=== PATIENT | female | born 1980 | race Caucasian/White ===

== ENCOUNTER 2018-05-07 22:50 | Emergency (ER) | payer BC ==
[2018-05-07 23:55] LABS: ADD MAN DIFF? NO
[2018-05-07 23:57] LABS: BASO # 0.1 x10^3/uL (0.0-0.2); BASO % 1 % (0-3); EOS # 0.3 x10^3/uL (0.0-0.7); EOS % 3 % (0-3); HEMATOCRIT 39.6 % (36.0-47.0); HEMOGLOBIN 13.6 g/dL (12.0-15.5); LYMPH # 4.6 x10^3/uL (1.0-4.8); LYMPH % 46 % (24-48); MEAN CORPUSCULAR HEMOGLOBIN 31 pg (25-35); MEAN CORPUSCULAR HGB CONC 34 g/dL (31-37); MEAN CORPUSCULAR VOLUME 89 fL (79-100); MONO # 0.5 x10^3/uL (0.0-1.1); MONO % 5 % (0-9); NEUT # 4.5 x10^3uL (1.8-7.7); NEUT % 45 % (31-73); PLATELET COUNT 301 x10^3/uL (140-400); RED BLOOD COUNT 4.46 x10^6/uL (3.50-5.40); WHITE BLOOD COUNT 9.9 x10^3/uL (4.0-11.0)
[2018-05-07 23:58] LABS: BILIRUBIN,URINE NEGATIVE (NEG); CLARITY,URINE CLEAR; COLOR,URINE YELLOW; GLUCOSE,URINE >=1000 mg/dL (NEG); NITRITE,URINE POSITIVE (NEG); PH,URINE 5.5; PROTEIN,URINE NEGATIVE (NEG-TRACE); UROBILINOGEN,URINE 0.2 mg/dL (0.2 mg/dL)
[2018-05-08 00:06] LABS: ANION GAP 10 (6-14); BACTERIA,URINE MANY /HPF (0-FEW); BLOOD UREA NITROGEN 7 mg/dL (7-20); CARBON DIOXIDE 25 mmol/L (21-32); CHLORIDE 102 mmol/L (98-107); CREATININE 0.8 mg/dL (0.6-1.0); GFR 80.7; GLUCOSE 267 mg/dL (70-99); POTASSIUM 3.7 mmol/L (3.5-5.1); SODIUM 137 mmol/L (136-145); SQUAMOUS EPITHELIAL CELL,UR MOD /LPF
[2018-05-08 00:15] LABS: TROPONINI < 0.017 ng/mL (0.000-0.055)
[2018-05-08 00:19] LABS: NT-PRO BNP 100 pg/mL (0-124)
[2018-05-08] MEDS: NITROFURANTOIN MONOHYD/M-CRYST 100 MG CAPSULE. PO (01:12)
== END 2018-05-08 01:27 | disposition home or self-care (01) ==
LOC: ER 05-08 01:27
DX: R60.0 Localized edema (principal); N39.0 Urinary tract infection, site not specified; R06.02 Shortness of breath; F41.9 Anxiety disorder, unspecified; F32.9 Major depressive disorder, single episode, unspecified; E11.9 Type 2 diabetes mellitus without complications; I10 Essential (primary) hypertension; Z98.51 Tubal ligation status; Z88.8 Allergy status to other drugs, medicaments and biological substances
CPT/HCPCS: 36415; 71045; 80048; 81001; 83880; 84484; 85025; 87086; 99285-25

== ENCOUNTER → 2019-01-01 | Outpatient (CLI) | payer BC ==
[2018-05-08 01:15] VITALS: BP 154/78
[~2019-01-01] MED LIST: DOCU-109 PO; FLUO40CA9 PO; GABA300C18 PO; GLIM2TAB2 PO; HYDR12.58 PO; LOSA1TAB22 PO; METF10007 PO; NITR100C62 PO; ONDA4TAB7 PO; OXYC1TAB15 PO; PANT40TA3 PO; PRED1TAB3 PO
--- NOTE | 2019-01-01 16:42 | KCIC ---
EXAM: Pelvic sonogram. HISTORY: Menorrhagia. TECHNIQUE: Transabdominal and transvaginal sonographic imaging of the pelvis was performed. COMPARISON: None. FINDINGS: The uterus measures 10.4 x 5.5 x 8.0 cm. There is a suspected subseptate uterus. The endometrial stripe measures 16 mm on the left aspect of the endometrial cavity and 11 mm on the right aspect of endometrial cavity. There are multiple complex nabothian cysts with septations within the cervix, largest which measures 1.1 cm. The left ovary is surgically absent. There is a 2.8 cm simple appearing cyst within the right ovary. The combination of the right ovarian cyst and surrounding ovarian parenchyma measures 5.3 x 3.6 x 4.6 cm. There is normal right ovarian blood flow. There is no pelvic free fluid. IMPRESSION: 1. Suspected subseptate uterus with prominent endometrial stripe within the left aspect of the endometrial cavity measuring 16 mm in thickness. This can be within normal limits for a premenopausal female. No endometrial cavity mass is seen. 2. 2.8 cm right ovarian cyst. 3. Surgically absent left ovary. 4. Multiple complicated nabothian cysts within the cervix. Electronically signed by: Stella Morelos MD (01/01/2019 4:39 PM) [facility]
== END | disposition home or self-care (01) ==
LOC: KCIC US 15:02
PROVIDERS: ATTEND Obstetrics & Gynecology
DX: N83.201 Unspecified ovarian cyst, right side (principal); N88.8 Other specified noninflammatory disorders of cervix uteri
CPT/HCPCS: 76830; 76856

== ENCOUNTER → 2019-01-07 | Outpatient (CLI) | payer BC ==
[2018-05-08 01:15] VITALS: BP 154/78
[2019-01-07 15:33] LABS: BASO % 1 % (0-3); EOS # 0.3 x10^3/uL (0.0-0.7); EOS % 3 % (0-3); HEMATOCRIT 39.5 % (36.0-47.0); HEMOGLOBIN 13.7 g/dL (12.0-15.5); LYMPH # 4.3 x10^3/uL (1.0-4.8); LYMPH % 43 % (24-48); MEAN CORPUSCULAR HEMOGLOBIN 30 pg (25-35); MEAN CORPUSCULAR HGB CONC 35 g/dL (31-37); MEAN CORPUSCULAR VOLUME 87 fL (79-100); MONO # 0.7 x10^3/uL (0.0-1.1); MONO % 8 % (0-9); NEUT # 4.5 x10^3uL (1.8-7.7); NEUT % 46 % (31-73); PLATELET COUNT 333 x10^3/uL (140-400); RED BLOOD COUNT 4.53 x10^6/uL (3.50-5.40); RED CELL DISTRIBUTION WIDTH 13.2 % (11.5-14.5); WHITE BLOOD COUNT 9.9 x10^3/uL (4.0-11.0)
[2019-01-07 15:48] LABS: ALBUMIN 3.3 g/dL (3.4-5.0); ALBUMIN/GLOBULIN RATIO 0.8 (1.0-1.7); CALCIUM 9.2 mg/dL (8.5-10.1); CREATININE 0.5 mg/dL (0.6-1.0); GFR 138.1; POTASSIUM 3.2 mmol/L (3.5-5.1); TOTAL BILIRUBIN 0.3 mg/dL (0.2-1.0); TOTAL PROTEIN 7.6 g/dL (6.4-8.2)
== END | disposition home or self-care (01) ==
LOC: SURGPAT 14:38
PROVIDERS: ATTEND Obstetrics & Gynecology
DX: Z01.818 Encounter for other preprocedural examination (principal); Z88.8 Allergy status to other drugs, medicaments and biological substances
CPT/HCPCS: 36415; 80053; 85025

== ENCOUNTER 2019-01-14 08:40 | Observation (INO) | payer BC ==
[~2019-01-14] VITALS: Ht 162.6 cm; Wt 121.1 kg
[2019-01-14] VITALS (7 sets, daily range): BP systolic 106–130; BP diastolic 54–82
[~2019-01-14 08:40] MED LIST changes: +BUPIVACAINE-EPI 0.25%-1:200000 MPF 30 ML VIAL. ONE; -DOCU-109 PO; +ESTROGENS, CONJ VAGINAL CREAM 30GM TUBE. ONE; -GABA300C18 PO; +HYDROmorphone 2 MG/ML VIAL IV PRN; +LIDOCAINE 1% PF 2 ML VIAL. ID PRN; +LIDOCAINE 1%/EPI 1:100,000 20 ML VIAL. ONE; +METHYLENE BLUE 1% 10 ML VIAL. ONE; +MORPHINE SULFATE 2 MG/ML VIAL. IV PRN; -ONDA4TAB7 PO; +ONDANSETRON PF 4 MG/2 ML VIAL. IV PRN; -OXYC1TAB15 PO; +PROCHLORPERAZINE 10 MG/2 ML VIAL. IV PRN; +SURGICEL HEMOSTAT 4X8 EACH. ONE; +ceFAZolin SODIUM 3 GM in IV DEXTROSE 5% 100ML 100 ML IV PRN; +fentaNYL PF VIAL 100 MCG/2 ML VIAL IV PRN
[2019-01-14] MEDS ORDERED: SUCCINYLCHOLINE 200 MG/10 ML VIAL. ONE (08:49)
[2019-01-14] MEDS ORDERED: ROCURONIUM 50 MG/5 ML VIAL. ONE ×2 (08:49→11:05)
[2019-01-14] MEDS ORDERED: LIDOCAINE 2% PF 5 ML VIAL. ONE (08:49)
[2019-01-14] MEDS ORDERED: fentaNYL PF VIAL 100 MCG/2 ML VIAL ONE ×2 (08:49→10:12)
[2019-01-14] MEDS ORDERED: PROPOFOL 100 ML IV ONE (08:49)
[2019-01-14] MEDS ORDERED: hydroCHLOROthiazide 25 MG TABLET PO SCH (09:00)
[2019-01-14] MEDS: IV RINGERS,LACTATED 1000ML 1,000 ML IV SCH ×2 (09:31→11:53)
[2019-01-14 09:43] LABS: U PREG PATIENT NEGATIVE (NEG)
[2019-01-14] MEDS ORDERED: DEXAMETHASONE SOD PHOS 20 MG/5 ML VIAL. ONE (09:50)
[2019-01-14] MEDS ORDERED: DESFLURANE 61 TO 120 MINUTES IH ONE (09:50)
[2019-01-14] MEDS ORDERED: NEOSTIGMINE METHYLSULFATE 5 MG/5 ML SYRINGE. ONE (09:53)
[2019-01-14] MEDS ORDERED: GLYCOPYRROLATE 1 MG/5 ML VIAL. ONE (09:53)
[2019-01-14] MEDS ORDERED: PHENYLEPHRINE in 0.9% NACL PF 1 MG/10 ML SYRINGE. IV ONE (10:08)
--- NOTE | 2019-01-14 11:43 | PDOC ---
BRIEF OPERATIVE NOTE Date: Jan 14, 2019 Pre-Op Diagnosis 1. Menorrhagia 2. ROV Cyst 3. Endometrial Hyperplasia Post-Op Diagnosis Same Procedure Performed TLH & RSO via Da Katy Robot Surgeon Dr. Rodriguez Meat Counter Worker Libia Anesthesia Type: General Blood Loss 100 ml Specimens Obtained cervix, uterus, felix. fallopian tubes, ROV Findings enlarged uterus, ROV cyst 5 cm size, pelvic sidewall adhesions Complications none Operative Note see dictation LUH RODRIGUEZ Jr, MD Jan 14, 2019 11:43
[2019-01-14] MEDS ORDERED: 0.9 % SODIUM CHLORIDE 10 ML DISP.SYRIN. IV PRN (11:45)
[2019-01-14] MEDS ORDERED: diphenhydrAMINE HCL 25 MG CAPSULE PO PRN (11:45)
[2019-01-14] MEDS ORDERED: DEXTROSE 50% 25 GM / 50ML DISP.SYRIN. IV PRN (11:45)
[2019-01-14] MEDS ORDERED: CALCIUM CARBONATE 500 MG TAB.CHEW PO PRN (11:45)
[2019-01-14] MEDS ORDERED: SIMETHICONE 80 MG TAB.CHEW PO PRN (11:45)
[2019-01-14] MEDS ORDERED: diphenhydrAMINE 50 MG/ML VIAL IV PRN (11:45)
[2019-01-14] MEDS ORDERED: ZOLPIDEM 5 MG TABLET. PO PRN (11:45)
[2019-01-14] MEDS ORDERED: ONDANSETRON PF 4 MG/2 ML VIAL. IV PRN (11:45)
[2019-01-14] MEDS ORDERED: KETOROLAC 30 MG/ML VIAL. IV PRN (11:45)
[2019-01-14] MEDS ORDERED: PROCHLORPERAZINE 10 MG/2 ML VIAL. IV PRN (11:45)
--- NOTE | 2019-01-14 12:14 | OP ---
DATE OF SURGERY: PREOPERATIVE DIAGNOSES: 1. Menorrhagia. 2. Right ovarian cyst. 3. Endometrial hyperplasia. POSTOPERATIVE DIAGNOSES: 1. Menorrhagia. 2. Right ovarian cyst. 3. Endometrial hyperplasia. PROCEDURE: TLH and RSO via da Katy robot. SURGEON: Luh Rodriguez MD FLIGHT MANAGER: Libia. ANESTHESIA: GETA. ESTIMATED BLOOD LOSS: 100 mL. COMPLICATIONS: None. FINDINGS: Enlarged uterus, right ovarian cyst 5 cm size, and pelvic sidewall adhesions. SUMMARY: A 38-year-old female with long history of menorrhagia. She also found to have a right ovarian cyst with pelvic sonogram and endometrial hyperplasia by endometrial biopsy. The patient was counseled on risks, benefits and expectations of TLH and RSO via da Katy robot and voiced a clear understanding to proceed. DESCRIPTION OF PROCEDURE: The patient was taken to surgery suite and placed in dorsal lithotomy position. She was prepped with Betadine solution for vaginal prep and ChloraPrep for abdominal prep. After adequate anesthesia, weighted speculum and curved Brenda placed vaginally and the anterior lip of the cervix grasped with single tooth tenaculum. The Myah uterine manipulator was then placed. Single tooth tenaculum and weighted speculum were then removed. Attention was now placed on abdomen. Small transverse skin incision made just below the umbilicus with a scalpel. The Veress needle was then placed through the infraumbilical incision site. The abdomen was allowed to insufflate up to 1-1/2 liters CO2 gas. The Veress needle was then removed. The 8 mm camera trocar was then placed. Camera was then placed. The uterus was enlarged with adhesions to the pelvic side wall. The right ovary demonstrated a 5 cm cyst. Additional incisions were made in the left and right lower quadrant with a scalpel, in which 8 mm trocars were placed. An accessory port was placed in the left upper quadrant, which a 5 mm port was placed. The robot was then docked in normal fashion. I then proceeded to the console. With the aid of the vessel sealer and bipolar cautery, the right round ligament was coagulated and dissected. The right infundibulopelvic ligament was isolated from the pelvic sidewall then coagulated and dissected. The right broad ligament was coagulated and dissected down to and including the right uterine artery. The bladder flap was then created using the vessel sealer and blunt dissection. Some of the uterus was then dissected away from the left pelvic side wall. The left round ligament was then coagulated and dissected. The left broad ligament was coagulated and dissected down to and including the left uterine artery. Colpotomy was then performed at the level of the vaginal ring. Using the spatula, the cervix, uterus, bilateral fallopian tubes and right ovary then removed in their entirety. The vaginal cuff was reapproximated using a V-Loc suture in a running fashion. Suction irrigation was utilized to verify good hemostasis. Salbador was then placed on the posterior vaginal cuff. The trocars were then removed under direct visualization. The abdomen was allowed to deflate as much as possible along with mechanical manipulation. The four skin incisions were then closed using 4-0 Vicryl suture in subcuticular manner. A 0.25% Marcaine with epinephrine was injected at each incision site. Moist vaginal packing was placed. The patient tolerated the procedure well and was taken to recovery room in stable condition. Sponge and needle count correct x 3. LUH RODRIGUEZ MD DR: CHARBEL/florencio JOB#: [id number] / [id number]
[2019-01-14] MEDS ORDERED: SCOPOLAMINE 1.5MG PATCH. TD ONE (12:45)
[2019-01-14] MEDS ORDERED: INSULIN LISPRO 100 UNIT/ML 3ML VIAL. SQ ONE (13:15)
[2019-01-14] MEDS: GABAPENTIN 300 MG CAPSULE. PO SCH ×2 (13:45→21:49)
[2019-01-14] MEDS ORDERED: PANTOPRAZOLE 40 MG TABLET.DR. PO SCH (16:30)
[2019-01-14] MEDS ORDERED: GLIMEPIRIDE 2 MG TABLET. PO SCH (17:00)
[2019-01-14] MEDS: GLIMEPIRIDE 2 MG TABLET. PO SCH (17:00)
[2019-01-14] MEDS: oxyCODONE/APAP 5/325 1 TAB TABLET PO PRN (19:42)
[2019-01-15 00:31] VITALS: BP 98/54
[2019-01-15 04:44] LABS: BASO % 0 % (0-3); EOS % 0 % (0-3); HEMATOCRIT 41.6 % (36.0-47.0); HEMOGLOBIN 13.5 g/dL (12.0-15.5); LYMPH # 2.9 x10^3/uL (1.0-4.8); LYMPH % 18 % (24-48); MEAN CORPUSCULAR HEMOGLOBIN 29 pg (25-35); MEAN CORPUSCULAR HGB CONC 33 g/dL (31-37); MEAN CORPUSCULAR VOLUME 89 fL (79-100); MONO % 6 % (0-9); NEUT # 11.8 x10^3uL (1.8-7.7); NEUT % 75 % (31-73); PLATELET COUNT 324 x10^3/uL (140-400); RED BLOOD COUNT 4.68 x10^6/uL (3.50-5.40); RED CELL DISTRIBUTION WIDTH 13.3 % (11.5-14.5); WHITE BLOOD COUNT 15.8 x10^3/uL (4.0-11.0)
[2019-01-15 05:05] LABS: CREATININE 0.8 mg/dL (0.6-1.0); GFR 80.3
[2019-01-15] MEDS: GABAPENTIN 300 MG CAPSULE. PO SCH (05:17)
[2019-01-15] MEDS: oxyCODONE/APAP 5/325 1 TAB TABLET PO PRN ×2 (05:17→11:01)
[2019-01-15 05:21] VITALS: BP 115/59
[2019-01-15] MEDS ORDERED: metFORMIN XR 500 MG TAB.ER.24H PO SCH (08:00)
[2019-01-15] MEDS: GLIMEPIRIDE 2 MG TABLET. PO SCH (08:09)
--- NOTE | 2019-01-15 08:48 | PDOC ---
SURGICAL PROGRESS NOTE Subjective Pt. feeling well. Pain controlled. Tolerating regular diet. Vital Signs Vital Signs Date Time Temp Pulse Resp B/P (MAP) Pulse Ox O2 Delivery O2 Flow Rate FiO2 01/15/19 06:25 16 Room Air 01/15/19 05:21 97.9 90 115/59 (77) 99 97.9 01/14/19 17:10 2.0 I&O Intake and Output 01/15/19 07:00 Intake Total 2700 ml Output Total 3175 ml Balance -475 ml Intake Oral 1200 ml IV Total 1500 ml Output Urine Total 3075 ml Estimated Blood Loss 100 ml PATIENT HAS A WALL: No General: Alert, Oriented X3, Cooperative HEENT: Atraumatic Lungs: Clear to auscultation Heart: Regular rate Abdomen: Normal bowel sounds, Soft, No tenderness, No masses Psych/Mental Status: Mental status NL Labs Laboratory Tests Test 01/14/19 08:50 01/14/19 09:23 01/14/19 13:01 01/15/19 03:30 Urine Test Negative (NEG) Glucose (Fingerstick) 137 mg/dL (70-99) 245 mg/dL (70-99) White Blood Count 15.8 x10^3/uL (4.0-11.0) Red Blood Count 4.68 x10^6/uL (3.50-5.40) Hemoglobin 13.5 g/dL (12.0-15.5) Hematocrit 41.6 % (36.0-47.0) Mean Corpuscular Volume 89 fL (79-100) Mean Corpuscular Hemoglobin 29 pg (25-35) Mean Corpuscular Hemoglobin Concent 33 g/dL (31-37) Red Cell Distribution Width 13.3 % (11.5-14.5) Platelet Count 324 x10^3/uL (140-400) Neutrophils (%) (Auto) 75 % (31-73) Lymphocytes (%) (Auto) 18 % (24-48) Monocytes (%) (Auto) 6 % (0-9) Eosinophils (%) (Auto) 0 % (0-3) Basophils (%) (Auto) 0 % (0-3) Neutrophils # (Auto) 11.8 x10^3uL (1.8-7.7) Lymphocytes # (Auto) 2.9 x10^3/uL (1.0-4.8) Monocytes # (Auto) 1.0 x10^3/uL (0.0-1.1) Eosinophils # (Auto) 0.0 x10^3/uL (0.0-0.7) Basophils # (Auto) 0.0 x10^3/uL (0.0-0.2) Creatinine 0.8 mg/dL (0.6-1.0) Estimated GFR (Cockcroft-Gault) 80.3 Laboratory Tests Test 01/14/19 08:50 01/14/19 09:23 01/14/19 13:01 01/15/19 03:30 Urine Test Negative (NEG) Glucose (Fingerstick) 137 mg/dL (70-99) 245 mg/dL (70-99) White Blood Count 15.8 x10^3/uL (4.0-11.0) Red Blood Count 4.68 x10^6/uL (3.50-5.40) Hemoglobin 13.5 g/dL (12.0-15.5) Hematocrit 41.6 % (36.0-47.0) Mean Corpuscular Volume 89 fL (79-100) Mean Corpuscular Hemoglobin 29 pg (25-35) Mean Corpuscular Hemoglobin Concent 33 g/dL (31-37) Red Cell Distribution Width 13.3 % (11.5-14.5) Platelet Count 324 x10^3/uL (140-400) Neutrophils (%) (Auto) 75 % (31-73) Lymphocytes (%) (Auto) 18 % (24-48) Monocytes (%) (Auto) 6 % (0-9) Eosinophils (%) (Auto) 0 % (0-3) Basophils (%) (Auto) 0 % (0-3) Neutrophils # (Auto) 11.8 x10^3uL (1.8-7.7) Lymphocytes # (Auto) 2.9 x10^3/uL (1.0-4.8) Monocytes # (Auto) 1.0 x10^3/uL (0.0-1.1) Eosinophils # (Auto) 0.0 x10^3/uL (0.0-0.7) Basophils # (Auto) 0.0 x10^3/uL (0.0-0.2) Creatinine 0.8 mg/dL (0.6-1.0) Estimated GFR (Cockcroft-Gault) 80.3 Assessment/Plan A: POD#1 s/p TLH & RSO P: D/c home. LUH LUCERO Jr, MD Jan 15, 2019 08:47
[2019-01-15] MEDS ORDERED: OXYC1TAB15 PO (08:51)
[2019-01-15] MEDS ORDERED: DOCU-109 PO (08:51)
[2019-01-15] MEDS ORDERED: GABA300C18 PO (08:51)
--- NOTE | 2019-01-15 08:52 | DISCH ---
DISCHARGE INSTRUCTIONS Condition on Discharge Condition on Discharge: Stable Activity After Discharge Activity Instructions for Disc: Activity as tolerated Lifting Instructions after Dis: No heavy lifting Driving Instructions after Dis: No driving for 2 weeks Diet after Discharge Diet after Discharge: Regular Contacting the DRKalpana after DC Call your doctor for: Concerns you may have Follow-Up Follow up with: Dr. Rodriguez in 2 weeks. LUH RODRIGUEZ Jr, MD Jan 15, 2019 08:52
[2019-01-15] MEDS ORDERED: hydroCHLOROthiazide 25 MG TABLET PO SCH (09:00)
[2019-01-15] MEDS ORDERED: FLUoxetine HCL 20 MG CAPSULE PO SCH (09:00)
[2019-01-15] MEDS ORDERED: LOSARTAN POTASSIUM 50 MG TABLET. PO SCH (09:00)
--- NOTE | 2019-01-15 09:28 | NUR ---
home instructions gone over with pt and signed. prescriptions for pain meds given with stool softener
[2019-01-15 11:19] VITALS: BP 126/69
--- NOTE | 2019-01-18 10:07 | PATHOLOGY ---
[facility] Accession Number: [id number] . 01 Material submitted: . CERVIX, UTERUS, BILATERAL FALLOPIAN TUBES, RIGHT OVARY . 01 Clinical history: . Endometrial hyperplasia. . 02 Diagnosis: Uterus and attached right fallopian tube and ovary and left fallopian tube, robotic laparoscopic hysterectomy with right salpingo-oophorectomy and left salpingectomy: - Disordered proliferative endometrium with focal simple hyperplasia. - Mild chronic cervicitis with focal squamous metaplasia. - Nabothian cysts, cervix, few. - Adenomyosis, uterine corpus, subbasal, focal. - Status post prior tubal ligation with mild hydrosalpinx of proximal tubal remnants. - Right paratubal cyst. - Follicular cyst and few cystic follicles of right ovary. (JPM:[facility] 01/15/2019) [facility]/01/18/2019 . 02 Comment: There is no atypia or evidence of malignancy. (JP:[facility] 01/15/2019) . 02 Electronically signed: . Tyler Rogers MD, Pathologist NPI- [id number] . 01 Gross description: . Received in formalin labeled "Bishop, Alecia, cervix, uterus, bilateral fallopian tubes, right ovary" is a hysterectomy specimen consisting of a uterus with an attached right fimbriated fallopian tube and right ovary. The left ovary is not present. A portion of possible remnant left fallopian tube without fimbria is attached to the uterine cornu. The uterus weighs 223 g and measures 12.8 cm from fundus to cervix, 8.1 cm from cornu to cornu, and 4.5 cm from anterior to posterior. The serosa is pink mackay and smooth. The cervical os is slitlike and measures 2.3 cm, and the ectocervix is pink-mackay and glistening. The cervix is probed patent and the uterus is opened to reveal a 5.0 x 4.5 cm endometrial cavity and a 5.5 x 1.7 cm endocervical canal. The endometrium is irregularly thickened and ranges from 0.5 up to 1.1 cm in thickness. The average myometrial thickness measures 2.7 cm. The uterus is serially sectioned to reveal one leiomyoma measuring 1.5 cm in greatest dimension, without hemorrhage or necrosis. . The right fimbriated fallopian tube measures 5.2 cm in length and 0.8 cm in diameter. The serosal surface is pink mackay and smooth, and the fallopian tube is serially sectioned to reveal a pinpoint lumen in the distal and mid aspect, and a dilated lumen in the proximal aspect. The proximal aspect of the fallopian tube displays an area where a segment is absent, possibly consistent with a prior sterilization procedure. The right ovary weighs 43 g and measures 5.2 x 4.1 x 3.6 cm. The ovary has a mackay-white cerebriform external surface and is notable for a thin walled simple cyst measuring 4.2 x 3.6 x 3.1 cm. The cyst contains pink tinged watery fluid and has a smooth mackay-white cyst lining without papillary excrescences. The ovary has a mackay-white unremarkable cut surface. The remnant left fallopian tube measures 2.6 cm in length and 0.6 cm in diameter. Upon sectioning, the lumen is dilated, with a diameter of 0.5 cm. . Electrical Cad Designer sections are submitted as follows: A1 12:00 cervix A2 6:00 cervix A3 anterior endomyometrium A4 posterior endomyometrium A5-A6 medical device sales representative right fallopian tube A7-A8 medical device sales representative right ovary and cyst wall A9 medical device sales representative remnant left fallopian tube A10-A12 additional anterior endometrium A13-A15 additional posterior endometrium ([facility]; 01/14/2019) SYC/SYC . 02 Pathologist provided ICD-10: N85.9, N72, N88.8, N80.0, N70.11, N83.8, N83.01 . 02 CPT . 528116 Specimen Comment: A courtesy copy of this report has been sent to Specimen Comment: [phone], . Specimen Comment: Report sent to / DR BOWER Performed at: 01 [facility] [address] [facility] [address], [place] [id number] MD Andi Delgado MD Phone: [phone] Performed at: 02 [facility] [address] [place], [place] [id number] MD Tyler Rogers MD Phone: [phone]
== END 2019-01-15 13:12 | disposition home or self-care (01) ==
LOC: SURG 08:40 → 3 NORTH 11:43
PROVIDERS: ADMIT Obstetrics & Gynecology; ATTEND Obstetrics & Gynecology
DX: N92.0 Excessive and frequent menstruation with regular cycle (principal); N83.201 Unspecified ovarian cyst, right side; N85.00 Endometrial hyperplasia, unspecified; I10 Essential (primary) hypertension; E11.9 Type 2 diabetes mellitus without complications; Z98.890 Other specified postprocedural states
CPT/HCPCS: 36415; 58571; 81025; 82565; 82962; 85025; 86850; 86900; 86901; 96374; A7015; G0378; G0379; J0330; J0780; J1100; J1815; J1885; J2001; J2370; J2704; J2710; J3010; J3490; J7030; J7120; 88307; Q9968

== ENCOUNTER 2019-01-27 01:39 | Inpatient (IN) | payer BC ==
[2019-01-27] VITALS (9 sets, daily range): BP systolic 131–172; BP diastolic 71–104
[~2019-01-27] VITALS: Ht 162.6 cm; Wt 121.1 kg
[~2019-01-27 01:39] MED LIST changes: -BUPIVACAINE-EPI 0.25%-1:200000 MPF 30 ML VIAL. ONE; +DOCU-109 PO; -ESTROGENS, CONJ VAGINAL CREAM 30GM TUBE. ONE; +GABA300C18 PO; -HYDROmorphone 2 MG/ML VIAL IV PRN; -LIDOCAINE 1% PF 2 ML VIAL. ID PRN; -LIDOCAINE 1%/EPI 1:100,000 20 ML VIAL. ONE; -METHYLENE BLUE 1% 10 ML VIAL. ONE; -MORPHINE SULFATE 2 MG/ML VIAL. IV PRN; -ONDANSETRON PF 4 MG/2 ML VIAL. IV PRN; +OXYC1TAB15 PO; -PROCHLORPERAZINE 10 MG/2 ML VIAL. IV PRN; -SURGICEL HEMOSTAT 4X8 EACH. ONE; -ceFAZolin SODIUM 3 GM in IV DEXTROSE 5% 100ML 100 ML IV PRN; -fentaNYL PF VIAL 100 MCG/2 ML VIAL IV PRN
--- NOTE | 2019-01-27 02:14 | PHYS DOC ---
Past Medical History Past Medical History: Anxiety, Depression, Diabetes-Type II, Hypertension, IBS , Other Additional Past Medical Histor: Barretts Esophagus Past Surgical History: Tonsillectomy, Tubal ligation, Other Additional Past Surgical Histo: Adnoids, L)tube and ovary mass removed. Alcohol Use: Occasionally Drug Use: None Adult General Chief Complaint Chief Complaint: ABDOMINAL PAIN HPI HPI 38-year-old female presents with right upper quadrant/epigastric pain. She states it started about 10:30 PM last night. The pain started approximately 3 hours after eating. She denies any melena or hematemesis. She denies any fever chills or sweats. She states she's never had pain this severe in the epigastric/ right upper quadrant region. She rates the pain as 10 out of 10.[] Review of Systems Review of Systems Constitutional: Denies fever or chills [] Eyes: Denies change in visual acuity, redness, or eye pain [] HENT: Denies nasal congestion or sore throat [] Respiratory: Denies cough or shortness of breath [] Cardiovascular: No additional information not addressed in HPI [] GI: Per history of present illness[] : Denies dysuria or hematuria [] Musculoskeletal: Denies back pain or joint pain [] Integument: Denies rash or skin lesions [] Neurologic: Denies headache, focal weakness or sensory changes [] Endocrine: Denies polyuria or polydipsia [] All other systems were reviewed and found to be within normal limits, except as documented in this note. Current Medications Current Medications Current Medications Medications (Trade) Dose Ordered Sig/Eloy Start Time Stop Time Status Last Admin Dose Admin Fentanyl Citrate (Fentanyl 2ml Vial) 50 mcg PRN Q1HR PRN 01/27/19 03:45 01/28/19 03:44 UNV Ondansetron HCl (Zofran) 4 mg PRN Q8HRS PRN 01/27/19 03:45 01/28/19 03:44 UNV Sodium Chloride 1,000 ml @ 125 mls/hr Q8H 01/27/19 03:44 01/28/19 03:43 UNV Allergies Allergies Allergies Coded Allergies Type Severity Reaction Last Updated Verified paroxetine Allergy Intermediate 01/14/19 Yes sertraline Allergy Intermediate 01/14/19 No Physical Exam Physical Exam Constitutional: Well developed, well nourished, moderate distress, non-toxic appearance. [] HENT: Normocephalic, atraumatic, bilateral external ears normal, oropharynx moist, no oral exudates, nose normal. [] Eyes: PERRLA, EOMI, conjunctiva normal, no discharge. [] Neck: Normal range of motion, no tenderness, supple, no stridor. [] Cardiovascular:Heart rate regular rhythm, no murmur [] Lungs & Thorax: Bilateral breath sounds clear to auscultation [] Abdomen: Epigastric right upper quadrant tender to palp positive Galvez's[] Skin: Warm, dry, no erythema, no rash. [] Back: No tenderness, no CVA tenderness. [] Extremities: No tenderness, no cyanosis, no clubbing, ROM intact, no edema. [] Neurologic: Alert and oriented X 3, normal motor function, normal sensory function, no focal deficits noted. [] Psychologic: Anxious. [] Current Patient Data Vital Signs Vital Signs Date Time Temp Pulse Resp B/P (MAP) Pulse Ox O2 Delivery O2 Flow Rate FiO2 01/27/19 02:16 95 20 169/93 (118) 99 Room Air 01/27/19 01:45 98.1 98.1 Lab Values Laboratory Tests Test 01/27/19 01:58 White Blood Count 12.9 x10^3/uL (4.0-11.0) H Red Blood Count 4.58 x10^6/uL (3.50-5.40) Hemoglobin 13.4 g/dL (12.0-15.5) Hematocrit 40.3 % (36.0-47.0) Mean Corpuscular Volume 88 fL (79-100) Mean Corpuscular Hemoglobin 29 pg (25-35) Mean Corpuscular Hemoglobin Concent 33 g/dL (31-37) Red Cell Distribution Width 12.8 % (11.5-14.5) Platelet Count 394 x10^3/uL (140-400) Neutrophils (%) (Auto) 50 % (31-73) Lymphocytes (%) (Auto) 40 % (24-48) Monocytes (%) (Auto) 5 % (0-9) Eosinophils (%) (Auto) 5 % (0-3) H Basophils (%) (Auto) 0 % (0-3) Neutrophils # (Auto) 6.4 x10^3uL (1.8-7.7) Lymphocytes # (Auto) 5.1 x10^3/uL (1.0-4.8) H Monocytes # (Auto) 0.7 x10^3/uL (0.0-1.1) Eosinophils # (Auto) 0.6 x10^3/uL (0.0-0.7) Basophils # (Auto) 0.0 x10^3/uL (0.0-0.2) Sodium Level 139 mmol/L (136-145) Potassium Level 3.0 mmol/L (3.5-5.1) L Chloride Level 99 mmol/L (98-107) Carbon Dioxide Level 28 mmol/L (21-32) Anion Gap 12 (6-14) Blood Urea Nitrogen 5 mg/dL (7-20) L Creatinine 0.8 mg/dL (0.6-1.0) Estimated GFR (Cockcroft-Gault) 80.3 BUN/Creatinine Ratio 6 (6-20) Glucose Level 217 mg/dL (70-99) H Calcium Level 9.0 mg/dL (8.5-10.1) Total Bilirubin 0.2 mg/dL (0.2-1.0) Aspartate Amino Transferase (AST) 18 U/L (15-37) Alanine Aminotransferase (ALT) 35 U/L (14-59) Alkaline Phosphatase 80 U/L (46-116) Total Protein 7.8 g/dL (6.4-8.2) Albumin 3.6 g/dL (3.4-5.0) Albumin/Globulin Ratio 0.9 (1.0-1.7) L Lipase 128 U/L (73-393) Laboratory Tests 01/27/19 01:58 Laboratory Tests 01/27/19 01:58 EKG EKG [] Radiology/Procedures Radiology/Procedures [] Impressions: PROCEDURE: ABDOMEN LTD EXAM: Ultrasound abdomen limited CLINICAL HISTORY: RUQ PAIN COMPARISON: None available. TECHNIQUE: Limited ultrasound examination of the right upper quadrant of the abdomen was performed FINDINGS: Liver: The liver measures 23.2 cm in length in the right mid clavicular line. Increased echogenicity of the liver relative to the right mid kidney may be seen with hepatic steatosis.. There is no focal abnormality of the liver. Portal and hepatic venous flow is confirmed with normal waveforms. Gallbladder/Biliary: A shadowing gallstone is seen at the gallbladder neck. Trace pericholecystic fluid. No definite gallbladder wall thickening.. There is mild discomfort with direct transducer pressure in the gallbladder fossa..The common bile duct measures 0.6 cm. The right kidney measures 12.6 cm in bipolar length. No focal renal lesion. No hydronephrosis. There is no free fluid in the subhepatic space. IMPRESSION: 1. There is cholelithiasis. Given the trace pericholecystic fluid and tenderness with direct transducer pressure at the gallbladder fossa, acute cholecystitis versus symptomatic cholelithiasis also remain within the differential. 2. Hepatomegaly and hepatic steatosis. Course & Med Decision Making Course & Med Decision Making Pertinent Labs and Imaging studies reviewed. (See chart for details) [ED course: Evaluation reveals a 38-year-old female with some epigastric and right upper quadrant pain. Her gallbladder ultrasound shows possibility of acute cholecystitis. Given the fact that she still remains very uncomfortable in the right upper quadrant after IV fluids pain and nausea medicine I do favor acute cholecystitis over biliary colic. I spoke with our surgeon Dr. Block who asked that we admit patient to the hospitalist service and he would see in consult.] Dragon Disclaimer Dragon Disclaimer This electronic medical record was generated, in whole or in part, using a voice recognition dictation system. Departure Departure Impression: Primary Impression: Acute cholecystitis Disposition: 09 ADMITTED INPATIENT Admitting Physician: Quin Hudson Condition: STABLE Referrals: IRWIN BOWER MD (PCP) ABHIJIT BOWMAN DO Jan 27, 2019 02:14
[2019-01-27] MEDS ORDERED: IV NORMAL SALINE 1000ML BAG 1,000 ML IV ONE (02:15)
[2019-01-27] MEDS ORDERED: ONDANSETRON PF 4 MG/2 ML VIAL. IV ONE (02:15)
[2019-01-27] MEDS ORDERED: fentaNYL PF VIAL 100 MCG/2 ML VIAL IV ONE (02:15)
[2019-01-27 02:32] LABS: BASO % 0 % (0-3); EOS # 0.6 x10^3/uL (0.0-0.7); EOS % 5 % (0-3); HEMATOCRIT 40.3 % (36.0-47.0); HEMOGLOBIN 13.4 g/dL (12.0-15.5); LYMPH # 5.1 x10^3/uL (1.0-4.8); LYMPH % 40 % (24-48); MEAN CORPUSCULAR HEMOGLOBIN 29 pg (25-35); MEAN CORPUSCULAR HGB CONC 33 g/dL (31-37); MEAN CORPUSCULAR VOLUME 88 fL (79-100); MONO # 0.7 x10^3/uL (0.0-1.1); MONO % 5 % (0-9); NEUT # 6.4 x10^3uL (1.8-7.7); NEUT % 50 % (31-73); PLATELET COUNT 394 x10^3/uL (140-400); RED BLOOD COUNT 4.58 x10^6/uL (3.50-5.40); RED CELL DISTRIBUTION WIDTH 12.8 % (11.5-14.5); WHITE BLOOD COUNT 12.9 x10^3/uL (4.0-11.0)
[2019-01-27 02:38] LABS: CREATININE 0.8 mg/dL (0.6-1.0); GFR 80.3
[2019-01-27 02:44] LABS: ALBUMIN 3.6 g/dL (3.4-5.0); ALBUMIN/GLOBULIN RATIO 0.9 (1.0-1.7); TOTAL BILIRUBIN 0.2 mg/dL (0.2-1.0); TOTAL PROTEIN 7.8 g/dL (6.4-8.2)
--- NOTE | 2019-01-27 03:48 | RAD ---
EXAM: Ultrasound abdomen limited CLINICAL HISTORY: RUQ PAIN COMPARISON: None available. TECHNIQUE: Limited ultrasound examination of the right upper quadrant of the abdomen was performed FINDINGS: Liver: The liver measures 23.2 cm in length in the right mid clavicular line. Increased echogenicity of the liver relative to the right mid kidney may be seen with hepatic steatosis.. There is no focal abnormality of the liver. Portal and hepatic venous flow is confirmed with normal waveforms. Gallbladder/Biliary: A shadowing gallstone is seen at the gallbladder neck. Trace pericholecystic fluid. No definite gallbladder wall thickening.. There is mild discomfort with direct transducer pressure in the gallbladder fossa..The common bile duct measures 0.6 cm. The right kidney measures 12.6 cm in bipolar length. No focal renal lesion. No hydronephrosis. There is no free fluid in the subhepatic space. IMPRESSION: 1. There is cholelithiasis. Given the trace pericholecystic fluid and tenderness with direct transducer pressure at the gallbladder fossa, acute cholecystitis versus symptomatic cholelithiasis also remain within the differential. 2. Hepatomegaly and hepatic steatosis. Electronically signed by: Farhad Pedraza MD (01/27/2019 3:45 AM) [facility]
[2019-01-27] MEDS: fentaNYL PF VIAL 100 MCG/2 ML VIAL IV PRN ×4 (04:19→07:38)
--- NOTE | 2019-01-27 05:20 | NUR ---
The patient, KATALINA MONGE, 38 y/o, F admitted by DUDLEY SMITH MD, was given written information regarding hospital policies, unit procedures and contact persons. Pt. vitals are stable, slight fever, and c/o pain 10 out of 10. Pt. was accompanied by and children. Pt. already evaluated by surgeon in ED. Will continue to monitor.
[2019-01-27] MEDS: PIPERACILLIN/TAZOBACTAM 3.375 GM in IV NORMAL SALINE 50ML 50 ML IV SCH ×3 (05:43→17:52)
[2019-01-27] MEDS: IV NORMAL SALINE 1000ML BAG 1,000 ML IV SCH ×3 (05:44→20:51)
[2019-01-27] MEDS: ONDANSETRON PF 4 MG/2 ML VIAL. IV PRN ×2 (06:22→20:51)
--- NOTE | 2019-01-27 07:04 | EKG ---
[facility] [address] [place] [address] Test Date: 2019-01-27 Test Time: 01:56:45 Pat Name: KATALINA MONGE Department: Room: 430 1 Gender: F Court Recorder: : [id number] Requested By: DUDLEY SMITH Order Number: [id number] Reading MD: Frank Osborne MD Measurements Intervals [place] Rate: 94 P: 90 [place]: 160 QRS: 33 QRSD: 96 T: 8 QT: 380 QTc: 481 Interpretive Statements SINUS RHYTHM PROLONGED QT BORDERLINE ECG Electronically Signed On 02-08-2019 9:53:23 CDT by Frank Osborne MD
--- NOTE | 2019-01-27 08:39 | PDOC ---
Provider Note Provider Note [id number] IRWIN BOWER MD Jan 27, 2019 08:39
[2019-01-27] MEDS ORDERED: PROCHLORPERAZINE 10 MG/2 ML VIAL. IV PRN ×2 (08:45→11:30)
[2019-01-27] MEDS: MORPHINE SULFATE 4 MG/ML VIAL. IV PRN ×3 (08:54→20:50)
--- NOTE | 2019-01-27 09:10 | HP ---
ADMIT DATE: 01/27/2019 CHIEF COMPLAINT: Upper abdominal pain. HISTORY OF PRESENT ILLNESS: A 38-year-old white female, is a type 2 diabetic, controlled and also has hypertension, came in with acute onset of right upper quadrant epigastric pain a few hours after eating. She has never had pain like this before. Sonogram showed gallstones, and all labs were normal except for white count elevated, and she was admitted as a probable acute cholecystitis. She has been seen by Dr. Block. Surgery will be done later today. She still complains of nausea and "hunger." ALLERGIES: PAXIL, SERTRALINE. MEDICATIONS: She takes glimepiride and metformin among few other meds. Recently had a total abdominal hysterectomy for precancerous disease, and she has had tonsillectomy as well. SOCIAL HISTORY: Nonsmoker, nondrinker, employed, not physically active. FAMILY HISTORY: Unremarkable. REVIEW OF SYSTEMS: No other complaints. OBJECTIVE: ENT: All within normal limits. No icterus is seen. NECK: No carotid bruits, nodes or thyroid enlargement. LUNGS: Clear. CARDIOVASCULAR: Regular rate, rate is 100. No murmurs heard. ABDOMEN: Very tender in the epigastrium and right upper quadrant. Guarding is noted. No masses. Bowel sounds diminished. EXTREMITIES: Unremarkable. Good pedal and radial pulses. NEUROLOGIC: Physiologic and oriented x 4. ASSESSMENT: Symptomatic acute cholecystitis. She is a controlled type 2 diabetic. PLAN: Zosyn and IV fluids and pain control in advance of surgery today. IRWIN BOWER MD DR: ISIDRO/florencio JOB#: [id number] / [id number]
--- NOTE | 2019-01-27 10:23 | NUR ---
SW following for discharge planning. Discussed with RN, pt is from home with and children. Pt scheduled for surgery at 1430 today. RN advised no SW needs at this time. SW will continue to follow for any discharge planning needs.
--- NOTE | 2019-01-27 11:12 | PDOC2 ---
CONSULT Date of Consult Date of Consult DATE: 01/27/19 TIME: 11:09 History of Present Illness Reason for Visit: The patient is a 38 year old female who reported to the ER due to abdominal pain. The pain started last night and was described as sharp and severe. The pain was located in the upper mid abdomen with radiation to the RUQ and back. She reports associated nausea with no vomiting. She has not had prior episodes of this type of pain. Past Medical History Past Medical History depression, diabetes, htn, morbid obesity Past Surgical History Past Surgical History robotic hysterectomy, tonsils, tubal Social History No ALCOHOL: none Current Problem List Problem List Problems Medical Problems: (1) Abdominal pain Status: Acute (2) Acute cholecystitis Status: Acute Current Medications Current Medications Current Medications Fentanyl Citrate (Fentanyl 2ml Vial) 50 mcg 1X ONCE IV Last administered on 08/07at 02:15; Start 01/27/19 at 02:15; Stop 01/27/19 at 02:16; Status DC Ondansetron HCl (Zofran) 4 mg 1X ONCE IV Last administered on 01/27/19at 02:15 ; Start 01/27/19 at 02:15; Stop 01/27/19 at 02:16; Status DC Sodium Chloride 1,000 ml @ 1,000 mls/hr 1X ONCE IV Last administered on at 02:15; Start 01/27/19 at 02:15; Stop 01/27/19 at 03:14; Status DC Ondansetron HCl (Zofran) 4 mg PRN Q8HRS PRN IV NAUSEA/VOMITING Last administered on 01/27/19at 06:22; Start 01/27/19 at 03:45; Stop 01/28/19 at 03:44 Fentanyl Citrate (Fentanyl 2ml Vial) 50 mcg PRN Q1HR PRN IV PAIN Last administered on 01/27/19at 07:38; Start 01/27/19 at 03:45; Stop 01/27/19 at 08:37 ; Status DC Sodium Chloride 1,000 ml @ 125 mls/hr Q8H IV Last administered on 01/27/19at 05 :44; Start 01/27/19 at 03:45; Stop 01/28/19 at 03:44 Piperacillin Sod/ Tazobactam Sod 3.375 gm/Sodium Chloride 50 ml @ 100 mls/hr Q6HRS IV Last administered on 01/27/19at 05:43; Start 01/27/19 at 06:00 Morphine Sulfate (Morphine Sulfate) 4 mg PRN Q2HR PRN IV PAIN Last administered on 01/27/19at 08:54; Start 01/27/19 at 08:45 Prochlorperazine Edisylate (Compazine) 5 mg PRN Q6HRS PRN IV NAUSEA/VOMITING Last administered on 01/27/19at 08:54; Start 01/27/19 at 08:45 Active Scripts Active Colace (Docusate Sodium) 100 Mg Capsule 100 Mg PO BID Gabapentin 300 Mg Capsule 600 Mg PO Q8HRS Reported Glimepiride 2 Mg Tablet 1 Tab PO DAILY Prozac (Fluoxetine Hcl) 40 Mg Capsule 20 Mg PO DAILY Metformin Hcl 1,000 Mg Tablet 1,500 Mg PO [id number] Protonix (Pantoprazole Sodium) 40 Mg Tablet.dr 40 Mg PO DAILY Losartan-Hctz 100-25 Mg Tab (Losartan/Hydrochlorothiazide) 1 Each Tablet 1 Each PO DAILY Allergies Allergies: Coded Allergies: paroxetine (Verified Allergy, Intermediate, 01/14/19) sertraline (Unverified Allergy, Intermediate, 01/14/19) ROS General: No: Chills, Night Sweats, Fatigue, Malaise, Appetite, Other Eyes: No Blurry vision, No Decreased vision, No Double vision, No Dry eyes, No Excessive tearing, No Eye Pain, No Itchy Eyes, No Loss of vision, No Photophobia , No Scotomata, No Uses contacts, No Uses glasses, No Other HEENT: No: Heacaches, Visual Changes, Hearing change, Nasal congestion, Nasal discharge, Oral lesions, Sinus pain, Sore Throat, Epistaxis, Sneezing, Snoring, Tinnitus, Vertigo, Vocal changes, Other ALLERGY AND IMMUNOLOGY: No: Hives, Insect Bite Sensitivity, Itchy/Watery Eyes, Nasal Congestion, Post Nasal Drip, Seasonal Allergies, Other Hematological and Lymphatic: No: Bleeding Problems, Blood Clots, Blood Transfusions, Brusing, Night Sweats, Pallor, Swollen Lymph Nodes, Other ENDOCRINE: No: Breast Changes, Galactorrhea, Hair Pattern Changes, Hot Flashes , Malaise/lethargy, Mood Swings, Palpitations, Polydipsia/polyuria, Skin Changes , Temperature Intolerance, Unexpected Weight Changes, Other Respiratory: No: Cough, Hemoptysis, Orthopnea, Pleuritic Pain, Shortness of breath, SOB with excertion, Sputum Changes, Stridor, Tachypnea, Wheezing, Other Gastrointestinal: Yes Nausea, Yes Abdominal Pain Genitourinary: No Dysuria, No Frequency, No Incontinence, No Hematuria, No Retention, No Discharge, No Urgency, No Pain, No Flank Pain, No Other, No , No , No , No , No , No , No Musculoskeletal: No Gait Disturbance, No Joint Pain, No Joint Stiffness, No Joint Swelling, No Muscle Pain, No Muscular Weakness, No Pain In:, No Swelling In:, No Other Neurological: No Behavorial Changes, No Bowel/Bladder ControlChng, No Confusion , No Dizziness, No Gait Disturbance, No Headaches, No Impaired Coord/balance, No Memory Loss, No Numbness/Tingling, No Seizures, No Speech Problems, No Tremors, No Visual Changes, No Weakness, No Other Skin: No Dry Skin, No Eczema, No Hair Changes, No Lumps, No Mole Changes, No Mottling, No Nail Changes, No Pruritus, No Rash, No Skin Lesion Changes, No Other, No Acne Physical Exam General: Alert, Oriented X3 HEENT: Atraumatic Lungs: Clear to auscultation Abdomen: Soft (morbid obesity, tender RUQ) Extremities: No clubbing Skin: No rashes Neuro: Normal gait, Normal speech Psych/Mental Status: Mental status NL MUSCULOSKELETAL: No joint tenderness Vitals VITALS Vital Signs Date Time Temp Pulse Resp B/P (MAP) Pulse Ox O2 Delivery O2 Flow Rate FiO2 01/27/19 08:54 Room Air 01/27/19 07:00 98.6 97 18 172/104 (126) 94 98.6 Labs Labs Laboratory Tests Test 01/27/19 01:58 01/27/19 07:58 White Blood Count 12.9 x10^3/uL (4.0-11.0) Red Blood Count 4.58 x10^6/uL (3.50-5.40) Hemoglobin 13.4 g/dL (12.0-15.5) Hematocrit 40.3 % (36.0-47.0) Mean Corpuscular Volume 88 fL (79-100) Mean Corpuscular Hemoglobin 29 pg (25-35) Mean Corpuscular Hemoglobin Concent 33 g/dL (31-37) Red Cell Distribution Width 12.8 % (11.5-14.5) Platelet Count 394 x10^3/uL (140-400) Neutrophils (%) (Auto) 50 % (31-73) Lymphocytes (%) (Auto) 40 % (24-48) Monocytes (%) (Auto) 5 % (0-9) Eosinophils (%) (Auto) 5 % (0-3) Basophils (%) (Auto) 0 % (0-3) Neutrophils # (Auto) 6.4 x10^3uL (1.8-7.7) Lymphocytes # (Auto) 5.1 x10^3/uL (1.0-4.8) Monocytes # (Auto) 0.7 x10^3/uL (0.0-1.1) Eosinophils # (Auto) 0.6 x10^3/uL (0.0-0.7) Basophils # (Auto) 0.0 x10^3/uL (0.0-0.2) Sodium Level 139 mmol/L (136-145) Potassium Level 3.0 mmol/L (3.5-5.1) Chloride Level 99 mmol/L (98-107) Carbon Dioxide Level 28 mmol/L (21-32) Anion Gap 12 (6-14) Blood Urea Nitrogen 5 mg/dL (7-20) Creatinine 0.8 mg/dL (0.6-1.0) Estimated GFR (Cockcroft-Gault) 80.3 BUN/Creatinine Ratio 6 (6-20) Glucose Level 217 mg/dL (70-99) Calcium Level 9.0 mg/dL (8.5-10.1) Total Bilirubin 0.2 mg/dL (0.2-1.0) Aspartate Amino Transf (AST/SGOT) 18 U/L (15-37) Alanine Aminotransferase (ALT/SGPT) 35 U/L (14-59) Alkaline Phosphatase 80 U/L (46-116) Total Protein 7.8 g/dL (6.4-8.2) Albumin 3.6 g/dL (3.4-5.0) Albumin/Globulin Ratio 0.9 (1.0-1.7) Lipase 128 U/L (73-393) Glucose (Fingerstick) 220 mg/dL (70-99) Laboratory Tests Test 01/27/19 01:58 01/27/19 07:58 White Blood Count 12.9 x10^3/uL (4.0-11.0) Red Blood Count 4.58 x10^6/uL (3.50-5.40) Hemoglobin 13.4 g/dL (12.0-15.5) Hematocrit 40.3 % (36.0-47.0) Mean Corpuscular Volume 88 fL (79-100) Mean Corpuscular Hemoglobin 29 pg (25-35) Mean Corpuscular Hemoglobin Concent 33 g/dL (31-37) Red Cell Distribution Width 12.8 % (11.5-14.5) Platelet Count 394 x10^3/uL (140-400) Neutrophils (%) (Auto) 50 % (31-73) Lymphocytes (%) (Auto) 40 % (24-48) Monocytes (%) (Auto) 5 % (0-9) Eosinophils (%) (Auto) 5 % (0-3) Basophils (%) (Auto) 0 % (0-3) Neutrophils # (Auto) 6.4 x10^3uL (1.8-7.7) Lymphocytes # (Auto) 5.1 x10^3/uL (1.0-4.8) Monocytes # (Auto) 0.7 x10^3/uL (0.0-1.1) Eosinophils # (Auto) 0.6 x10^3/uL (0.0-0.7) Basophils # (Auto) 0.0 x10^3/uL (0.0-0.2) Sodium Level 139 mmol/L (136-145) Potassium Level 3.0 mmol/L (3.5-5.1) Chloride Level 99 mmol/L (98-107) Carbon Dioxide Level 28 mmol/L (21-32) Anion Gap 12 (6-14) Blood Urea Nitrogen 5 mg/dL (7-20) Creatinine 0.8 mg/dL (0.6-1.0) Estimated GFR (Cockcroft-Gault) 80.3 BUN/Creatinine Ratio 6 (6-20) Glucose Level 217 mg/dL (70-99) Calcium Level 9.0 mg/dL (8.5-10.1) Total Bilirubin 0.2 mg/dL (0.2-1.0) Aspartate Amino Transf (AST/SGOT) 18 U/L (15-37) Alanine Aminotransferase (ALT/SGPT) 35 U/L (14-59) Alkaline Phosphatase 80 U/L (46-116) Total Protein 7.8 g/dL (6.4-8.2) Albumin 3.6 g/dL (3.4-5.0) Albumin/Globulin Ratio 0.9 (1.0-1.7) Lipase 128 U/L (73-393) Glucose (Fingerstick) 220 mg/dL (70-99) Assessment/Plan Assessment/Plan RUQ pain, suspect calculous cholecystitis; recommend laparoscopic cholecystectomy. The details and risks of surgery were discussed with the patient. She understands and would like to proceed. ZHEN TRUONG MD Jan 27, 2019 11:12
[2019-01-27] MEDS ORDERED: IV RINGERS,LACTATED 1000ML 1,000 ML IV SCH (11:27)
[2019-01-27] MEDS ORDERED: ONDANSETRON PF 4 MG/2 ML VIAL. IV PRN (11:30)
[2019-01-27] MEDS ORDERED: fentaNYL PF VIAL 100 MCG/2 ML VIAL IV PRN ×2 (11:30)
[2019-01-27] MEDS ORDERED: HYDROmorphone 2 MG/ML VIAL IV PRN (11:30)
[2019-01-27] MEDS ORDERED: SCOPOLAMINE 1.5MG PATCH. TD SCH (11:37)
[2019-01-27] MEDS ORDERED: MORPHINE SULFATE 2 MG/ML VIAL. IV ONE (11:45)
[2019-01-27] MEDS ORDERED: ROCURONIUM 50 MG/5 ML VIAL. ONE (11:50)
[2019-01-27] MEDS ORDERED: GLYCOPYRROLATE 1 MG/5 ML VIAL. ONE (11:50)
[2019-01-27] MEDS ORDERED: NEOSTIGMINE METHYLSULFATE 5 MG/5 ML SYRINGE. ONE (11:50)
[2019-01-27] MEDS ORDERED: fentaNYL PF VIAL 100 MCG/2 ML VIAL ONE (11:50)
[2019-01-27] MEDS ORDERED: SEVOFLURANE 61 TO 120 MINUTES. IH ONE (11:50)
[2019-01-27] MEDS ORDERED: MIDAZOLAM HCL/PF 2 MG/2 ML VIAL. ONE (11:51)
[2019-01-27] MEDS ORDERED: BUPIVAC MPF-EPI 0.5%-1:200000 30 ML VIAL. ONE (12:06)
[2019-01-27] MEDS ORDERED: SURGICEL HEMOSTAT 4X8 EACH. ONE (12:06)
[2019-01-27] MEDS ORDERED: IOHEXOL 300 MG/ML 100ML VIAL. ONE (12:06)
[2019-01-27] MEDS ORDERED: SUCCINYLCHOLINE 200 MG/10 ML VIAL. ONE (13:31)
[2019-01-27] MEDS ORDERED: PROPOFOL 20 ML IV ONE (14:15)
[2019-01-27] MEDS ORDERED: DEXAMETHASONE SOD PHOS 20 MG/5 ML VIAL. ONE (14:15)
[2019-01-27] MEDS ORDERED: LIDOCAINE 2% PF 5 ML VIAL. ONE (14:15)
[2019-01-27] MEDS ORDERED: ONDANSETRON PF 4 MG/2 ML VIAL. ONE (14:15)
--- NOTE | 2019-01-27 14:43 | PDOC4 ---
Operative Note Operative Note Operative Note: Preoperative Diagnosis: Acute cholecystitis Postoperative Diagnosis: Same Procedure: Laparoscopic cholecystectomy with intraoperative cholangiogram Surgeons: Alejandro Farm Implement Engine Mechanic: Libia VELIZ, JAD Gilmore Anesthesia: Gen. Estimated Blood Loss: 20 mL Specimen: Gallbladder to pathology Drains: None Complications: None Indications: The patient is a 38-year-old female who is admitted due to acute onset of severe abdominal pain. Her evaluation is consistent with acute cholecystitis. Surgical treatment was offered by means of a laparoscopic cholecystectomy. The risks of surgery were discussed which include bleeding, infection, bile duct injury, bile leak, pain, the potential for additional surgeries or procedures. The patient understands and would like to proceed. Description: The patient was taken to the operating room and laid supine on the operating table. General anesthesia was performed. The abdomen was prepped with ChloraPrep and draped in a standard surgical fashion. A small supraumbilical incision was made with a scalpel. The Veress needle was then inserted and a pneumoperitoneum was then created. A 5 mm trocar was then inserted and the laparoscope was introduced. In the upper midabdomen an 11 mm trocar was inserted and in the right upper quadrant two 5 mm trochars were inserted. The patient had marked hepatic steatosis. The gallbladder was distended with inflammatory change consistent with acute cholecystitis. Approximately 55 mL of yellow fluid was aspirated from the gallbladder providing decompression. The gallbladder was retracted cephalad. The cystic duct was dissected free from surrounding tissues. One clip was placed on the duct near the gallbladder junction. An opening was made in the duct and a cholangiocatheter placed within and secured with a clip. Using contrast dye and fluoroscopy an intraoperative cholangiogram was performed that appeared unremarkable. The clip and catheter were then withdrawn. Three clips were placed on the cystic duct and it was divided. The cystic artery was then identified, dissected free, doubly clipped and divided as well. The gallbladder was then mobilized away from the liver with cautery. The gallbladder was then placed in an endoscopic bag and extracted at the superior trocar site. The fascia there was closed with a 0 Vicryl sutures. A Surgicel pack was placed on the gallbladder fossa to assist with hemostasis. All blood and irrigation fluid was suctioned and hemostasis was good. The remaining ports were removed and the pneumoperitoneum was relieved. The skin incisions were injected with half percent Marcaine with epinephrine, and all were closed using 4-0 Monocryl suture. Steri-Strips and dressings were then applied. The patient tolerated the procedure well and was sent to the recovery room in stable condition. At the end of the case all counts were correct. ZHEN TRUONG MD Jan 27, 2019 14:43
[2019-01-27] MEDS ORDERED: KETOROLAC 30 MG/ML VIAL. IV PRN (14:45)
[2019-01-27] MEDS ORDERED: oxyCODONE/APAP 5/325 1 TAB TABLET PO PRN ×2 (14:45→15:00)
[2019-01-27] MEDS: MORPHINE SULFATE 2 MG/ML VIAL. IV PRN ×2 (14:54→15:23)
--- NOTE | 2019-01-27 15:37 | RAD ---
C-arm fluoroscopy with fluoroscopic spot views Clinical indications: Intraoperative cholangiogram Total fluoroscopic time: 0.12 minutes. Total fluoroscopic spot images: 3. IMPRESSION: Fluoroscopic spot images demonstrate contrast opacification of a mildly dilated extrahepatic biliary tree with free flow of contrast material from the common bile duct into the duodenum. No stricture or common bile duct stone is evident. Electronically signed by: Rodolfo Teresa MD (01/27/2019 3:34 PM) [id number]
[2019-01-27] MEDS ORDERED: metFORMIN 500 MG TABLET PO ONE (23:00)
[2019-01-28] MEDS: PIPERACILLIN/TAZOBACTAM 3.375 GM in IV NORMAL SALINE 50ML 50 ML IV SCH ×3 (00:16→10:31)
[2019-01-28 03:00] VITALS: BP 119/70
--- NOTE | 2019-01-28 05:56 | NUR ---
Pt. has been tolerating clear liquid diet well. Changed to GI soft per MD order to [facility].
[2019-01-28] MEDS: HYDROcodone/APAP 7.5/325MG 1 TAB TABLET PO PRN ×2 (06:18→10:30)
--- NOTE | 2019-01-28 06:18 | NUR ---
Pt. states she gets hives with oxycodone. Added it to allergy list but Dr. Leavitt stated it is not a "true allergy" so this nurse took it off. ordered lortab for her. Will pass on to day shift.
[2019-01-28 07:00] VITALS: BP 144/83
[2019-01-28] MEDS ORDERED: metFORMIN 500 MG TABLET PO SCH (08:00)
[2019-01-28] MEDS ORDERED: metFORMIN XR 500 MG TAB.ER.24H PO SCH (08:00)
--- NOTE | 2019-01-28 08:37 | PDOC ---
Provider Note Provider Note feels better, eating- labs/glucose ok- will let dr leda noriega when ok for dc as she is on zosyn- same meds IRWIN BOWER MD Jan 28, 2019 08:37
--- NOTE | 2019-01-28 09:03 | PDOC ---
SHERYL DAVIS SENIOR IT PROJECT MANAGER 01/28/19 0903: SURGICAL PROGRESS NOTE Subjective tolerating diet pain managed urinating Vital Signs Vital Signs Date Time Temp Pulse Resp B/P (MAP) Pulse Ox O2 Delivery O2 Flow Rate FiO2 01/28/19 07:32 92 Room Air 01/28/19 07:00 98.2 88 18 144/83 (103) 98.2 01/27/19 16:00 2.0 I&O Intake and Output 01/28/19 06:59 Intake Total 1050 ml Output Total 20 ml Balance 1030 ml Intake IV Total 1050 ml Output Estimated Blood Loss 20 ml # Voids 5 General: Alert, Oriented X3, Cooperative, No acute distress Abdomen: Soft, Other (lap dressings dry, incisional TTP) Labs Laboratory Tests Test 01/27/19 01:58 01/27/19 07:58 01/27/19 16:41 01/27/19 20:28 White Blood Count 12.9 x10^3/uL (4.0-11.0) Red Blood Count 4.58 x10^6/uL (3.50-5.40) Hemoglobin 13.4 g/dL (12.0-15.5) Hematocrit 40.3 % (36.0-47.0) Mean Corpuscular Volume 88 fL (79-100) Mean Corpuscular Hemoglobin 29 pg (25-35) Mean Corpuscular Hemoglobin Concent 33 g/dL (31-37) Red Cell Distribution Width 12.8 % (11.5-14.5) Platelet Count 394 x10^3/uL (140-400) Neutrophils (%) (Auto) 50 % (31-73) Lymphocytes (%) (Auto) 40 % (24-48) Monocytes (%) (Auto) 5 % (0-9) Eosinophils (%) (Auto) 5 % (0-3) Basophils (%) (Auto) 0 % (0-3) Neutrophils # (Auto) 6.4 x10^3uL (1.8-7.7) Lymphocytes # (Auto) 5.1 x10^3/uL (1.0-4.8) Monocytes # (Auto) 0.7 x10^3/uL (0.0-1.1) Eosinophils # (Auto) 0.6 x10^3/uL (0.0-0.7) Basophils # (Auto) 0.0 x10^3/uL (0.0-0.2) Sodium Level 139 mmol/L (136-145) Potassium Level 3.0 mmol/L (3.5-5.1) Chloride Level 99 mmol/L (98-107) Carbon Dioxide Level 28 mmol/L (21-32) Anion Gap 12 (6-14) Blood Urea Nitrogen 5 mg/dL (7-20) Creatinine 0.8 mg/dL (0.6-1.0) Estimated GFR (Cockcroft-Gault) 80.3 BUN/Creatinine Ratio 6 (6-20) Glucose Level 217 mg/dL (70-99) Calcium Level 9.0 mg/dL (8.5-10.1) Total Bilirubin 0.2 mg/dL (0.2-1.0) Aspartate Amino Transf (AST/SGOT) 18 U/L (15-37) Alanine Aminotransferase (ALT/SGPT) 35 U/L (14-59) Alkaline Phosphatase 80 U/L (46-116) Total Protein 7.8 g/dL (6.4-8.2) Albumin 3.6 g/dL (3.4-5.0) Albumin/Globulin Ratio 0.9 (1.0-1.7) Lipase 128 U/L (73-393) Glucose (Fingerstick) 220 mg/dL (70-99) 212 mg/dL (70-99) 235 mg/dL (70-99) Test 01/28/19 07:40 Glucose (Fingerstick) 186 mg/dL (70-99) Laboratory Tests Test 01/27/19 16:41 01/27/19 20:28 01/28/19 07:40 Glucose (Fingerstick) 212 mg/dL (70-99) 235 mg/dL (70-99) 186 mg/dL (70-99) Problem List Problems Medical Problems: (1) Abdominal pain Status: Acute (2) Acute cholecystitis Status: Acute Assessment/Plan s/p lap tim stable surgically can dc home from surgical pov 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
[2019-01-28 11:00] VITALS: BP 147/91
--- NOTE | 2019-01-28 12:03 | NUR ---
SW following for discharge planning. Discussed with RN, pt is from home and possibly discharging home with self care today. RN advised no SW needs.
--- NOTE | 2019-01-28 14:00 | NUR ---
Pt was given discharge instructions, follow up information, new prescriptions and teaching. Pt will follow up with Dr. Rodriguez at 1430 today in his office. Pt will be returning home with self care. at bedside. All belongings left with pt at time of discharge. Pt is stable. Alert x4. Pt was escorted out via wheelchair by hospital [employer]NER, pt left at 1400. Iv removed, No tele.
--- NOTE | 2019-01-28 19:09 | DS ---
DATE OF DISCHARGE: 01/28/2019 HOSPITAL SUMMARY: A 38-year-old white female diabetic, came in with abdominal pain consistent with gallbladder origin and she had large gallbladder full of stones on sonogram. Liver function tests and chemistry profile were unremarkable. She was taken to surgery by Dr. Allen on the day of admission and had successful laparoscopic cholecystectomy and is doing well at this time and is comfortable to be followed as an outpatient. FINAL DIAGNOSES: Acute cholecystitis with cholelithiasis. OPERATIONS AND PROCEDURES: Laparoscopic cholecystectomy with cholangiogram. COMPLICATIONS: None. CONSULTATIONS: Dr. Ken Allen. DISPOSITION: Home. Medicines remain the same with pain medicine per Dr. Allen. Office followup with Dr. Leavitt in 1 week regarding her diabetes, Dr. Allen in 1 week for postoperative care. Low fat diet, diabetic restrictions. PROGNOSIS: Good. IRWIN LEAVITT MD DR: ISIDRO/florencio JOB#: [id number] / [id number]
--- NOTE | 2019-01-29 17:07 | PATHOLOGY ---
[facility] Accession Number: [id number] . 01 Material submitted: . gallbladder - GALLBLADDER . 01 Clinical history: . Acute cholecystitis . 02 Diagnosis: Gallbladder, laparoscopic cholecystectomy: - Cholelithiasis. - Cholesterolosis, focal. - Acute and chronic cholecystitis with focally increased eosinophils. (JPM:[facility] 01/29/2019) QTP/01/29/2019 . 02 Comment: There is no evidence of malignancy. (JPM:[facility] 01/29/2019) . 02 Electronically signed: . Tyler Rogers MD, Pathologist NPI- [id number] . 01 Gross description: . Received in formalin labeled "Bishop, Alecia, gallbladder," is an intact gallbladder measuring 9.2 x 3.8 x 2.7 cm in greatest dimensions. The serosal surface is smooth to shaggy and dusky crow-mackay to hemorrhagic in appearance. Opening the specimen reveals a granular, dark green-brown mucosa measuring 0.1 cm in thickness with a gallbladder wall thickness of up to 0.3 cm. No polyps or nodules are noted grossly. Two calculi are present within the specimen that are granular and dark yellow-green in appearance, measuring 1.2 cm and 1.5 cm in maximum dimension (the smaller calculus is found firmly lodged within the infundibulum). Tube Filler sections of the infundibulum, body and fundus are submitted in cassette A1. ([facility]; 01/28/2019) XDC/XDC . 02 Pathologist provided ICD-10: K80.12, K82.4 . 02 CPT . 845642 Specimen Comment: A courtesy copy of this report has been sent to Specimen Comment: [phone], , , . Specimen Comment: Report sent to ,DR SMITH / DR BOWER Specimen Comment: DR BOWMAN Performed at: [address], [place] [id number] MD Andi Delgado MD Phone: [phone] Performed at: 02 [facility] [address] [place], [place] [id number] MD Tyler Rogers MD Phone: [phone]
== END 2019-01-28 14:03 | disposition home or self-care (01) | DRG 418 ==
LOC: ER 01:39 → 4 NORTH 03:45
PROVIDERS: ADMIT Family Medicine; ATTEND Family Medicine
PROC: BF121ZZ Fluoroscopy of Gallbladder using Low Osmolar Contrast (ICD-10-PCS; 2019-01-27)
PROC: 0FT44ZZ Resection of Gallbladder, Percutaneous Endoscopic Approach (ICD-10-PCS; principal; 2019-01-27 13:00)
DX: K80.00 Calculus of gallbladder with acute cholecystitis without obstruction (principal); Z68.42 Body mass index [BMI] 45.0-49.9, adult; E11.9 Type 2 diabetes mellitus without complications; I10 Essential (primary) hypertension; K58.9 Irritable bowel syndrome, unspecified; K76.0 Fatty (change of) liver, not elsewhere classified; E66.01 Morbid (severe) obesity due to excess calories; F32.9 Major depressive disorder, single episode, unspecified; F41.9 Anxiety disorder, unspecified; Z90.710 Acquired absence of both cervix and uterus; Z98.51 Tubal ligation status; Z88.8 Allergy status to other drugs, medicaments and biological substances
CPT/HCPCS: 36415; 74300; 76705; 80053; 82962; 83690; 85025; 88304; 93005; 96361; 96374; 96375; A7015; J0330; J0780; J1100; J1885; J2001; J2250; J2270; J2405; J2543; J2704; J2710; J3010; J3490; J7030; J7120; Q9967; 99285-25

== ENCOUNTER 2019-01-31 23:56 | Emergency (ER) | payer BC ==
[~2019-01-31] VITALS: Ht 162.6 cm; Wt 117.9 kg
[2019-02-01 02:42] LABS: BASO # 0.1 x10^3/uL (0.0-0.2); BASO % 1 % (0-3); EOS % 8 % (0-3); HEMATOCRIT 40.8 % (36.0-47.0); HEMOGLOBIN 13.7 g/dL (12.0-15.5); LYMPH # 4.3 x10^3/uL (1.0-4.8); LYMPH % 33 % (24-48); MEAN CORPUSCULAR HEMOGLOBIN 29 pg (25-35); MEAN CORPUSCULAR HGB CONC 34 g/dL (31-37); MEAN CORPUSCULAR VOLUME 87 fL (79-100); MONO # 0.6 x10^3/uL (0.0-1.1); MONO % 4 % (0-9); NEUT # 7.1 x10^3uL (1.8-7.7); NEUT % 54 % (31-73); PLATELET COUNT 420 x10^3/uL (140-400); RED BLOOD COUNT 4.68 x10^6/uL (3.50-5.40); RED CELL DISTRIBUTION WIDTH 12.8 % (11.5-14.5); WHITE BLOOD COUNT 13.1 x10^3/uL (4.0-11.0)
[2019-02-01 02:51] LABS: CALCIUM 9.7 mg/dL (8.5-10.1); CREATININE 0.7 mg/dL (0.6-1.0); GFR 93.6; POTASSIUM 3.9 mmol/L (3.5-5.1)
--- NOTE | 2019-02-01 02:52 | PHYS DOC ---
Past Medical History Past Medical History: Anxiety, Depression, Diabetes-Type II, Hypertension, IBS , Other Additional Past Medical Histor: Barretts Esophagus Past Surgical History: Cholecystectomy, Hysterectomy, Tonsillectomy, Tubal ligation, Other Additional Past Surgical Histo: Adnoids, L)tube and ovary mass removed. Alcohol Use: Occasionally Drug Use: None Adult General Chief Complaint Chief Complaint: POST-OP PROBLEM HPI HPI Patient is a 38 year old female who is 4 days post laparoscopic cholecystectomy in 2 weeks post hysterectomy who presents with upper abdominal pain and nausea after eating dinner. Patient states she had a number help her and has since had increased pain and nausea. No vomiting. No fever chills or sweats. No shoulder or back pain. No urinary frequency urgency or dysuria. Patient has been taking hydrocodone every 4 hours as needed for pain. Last dose was several hours prior to arrival. No surgeon was Dr. Truong. [] Review of Systems Review of Systems Review symptoms as per history of present illness. All other review symptoms are negative. All other systems were reviewed and found to be within normal limits, except as documented in this note. Current Medications Current Medications Current Medications Medications (Trade) Dose Ordered Sig/Eloy Start Time Stop Time Status Last Admin Dose Admin Famotidine (Pepcid Vial) 20 mg 1X ONCE 02/01/19 03:00 02/01/19 03:01 DC 02/01/19 02:57 20 MG Ondansetron HCl (Zofran) 4 mg 1X ONCE 02/01/19 03:00 02/01/19 03:01 DC 02/01/19 02:56 4 MG Allergies Allergies Allergies Coded Allergies Type Severity Reaction Last Updated Verified paroxetine Allergy Intermediate 01/14/19 Yes sertraline Allergy Intermediate 01/14/19 No Physical Exam Physical Exam Constitutional: Well developed, well nourished, no acute distress, non-toxic appearance. [] HENT: Normocephalic, atraumatic, bilateral external ears normal, oropharynx moist, no oral exudates, nose normal. [] Eyes: PERRLA, EOMI. Lungs & Thorax: Bilateral breath sounds clear to auscultation. [] Abdomen: Bowel sounds normal, soft, epigastric pain, tenderness. [] Skin: Warm, dry, no erythema, no rash. [] Back: No tenderness, no CVA tenderness. [] Extremities: No tenderness, no cyanosis, no edema. [] Neurologic: Alert and oriented X 3, normal motor function, normal sensory function, no focal deficits noted. [] Psychologic: Affect normal, judgement normal, mood normal. [] Current Patient Data Vital Signs Vital Signs Date Time Temp Pulse Resp B/P (MAP) Pulse Ox O2 Delivery O2 Flow Rate FiO2 02/01/19 02:56 92 18 120/61 (80) 99 Room Air 02/01/19 01:17 97.9 97.9 Lab Values Laboratory Tests Test 02/01/19 02:35 White Blood Count 13.1 x10^3/uL (4.0-11.0) H Red Blood Count 4.68 x10^6/uL (3.50-5.40) Hemoglobin 13.7 g/dL (12.0-15.5) Hematocrit 40.8 % (36.0-47.0) Mean Corpuscular Volume 87 fL (79-100) Mean Corpuscular Hemoglobin 29 pg (25-35) Mean Corpuscular Hemoglobin Concent 34 g/dL (31-37) Red Cell Distribution Width 12.8 % (11.5-14.5) Platelet Count 420 x10^3/uL (140-400) H Neutrophils (%) (Auto) 54 % (31-73) Lymphocytes (%) (Auto) 33 % (24-48) Monocytes (%) (Auto) 4 % (0-9) Eosinophils (%) (Auto) 8 % (0-3) H Basophils (%) (Auto) 1 % (0-3) Neutrophils # (Auto) 7.1 x10^3uL (1.8-7.7) Lymphocytes # (Auto) 4.3 x10^3/uL (1.0-4.8) Monocytes # (Auto) 0.6 x10^3/uL (0.0-1.1) Eosinophils # (Auto) 1.0 x10^3/uL (0.0-0.7) H Basophils # (Auto) 0.1 x10^3/uL (0.0-0.2) Sodium Level 138 mmol/L (136-145) Potassium Level 3.9 mmol/L (3.5-5.1) Chloride Level 100 mmol/L (98-107) Carbon Dioxide Level 27 mmol/L (21-32) Anion Gap 11 (6-14) Blood Urea Nitrogen 6 mg/dL (7-20) L Creatinine 0.7 mg/dL (0.6-1.0) Estimated GFR (Cockcroft-Gault) 93.6 BUN/Creatinine Ratio 9 (6-20) Glucose Level 193 mg/dL (70-99) H Calcium Level 9.7 mg/dL (8.5-10.1) Total Bilirubin 0.2 mg/dL (0.2-1.0) Aspartate Amino Transferase (AST) 26 U/L (15-37) Alanine Aminotransferase (ALT) 47 U/L (14-59) Alkaline Phosphatase 71 U/L (46-116) Troponin I Quantitative < 0.017 ng/mL (0.000-0.055) Total Protein 7.6 g/dL (6.4-8.2) Albumin 3.4 g/dL (3.4-5.0) Albumin/Globulin Ratio 0.8 (1.0-1.7) L Lipase 89 U/L (73-393) Laboratory Tests 02/01/19 02:35 Laboratory Tests 02/01/19 02:35 EKG EKG [] Radiology/Procedures Radiology/Procedures [] Course & Med Decision Making Course & Med Decision Making Pertinent Labs and Imaging studies reviewed. (See chart for details) [Symptoms worse after eating and are improved with treatment. Abdomen soft, nonsurgical. Appropriate post surgical tenderness. Work nondiagnostic. Discussed with patient CT scan for evaluation of postsurgical complications. Patient declines. States she feels better and prefers to follow-up with her general surgeon. Agrees to return to the ED should symptoms worsen. Contact her surgeon's office in the morning. Dragon Disclaimer Sage Disclaimer This electronic medical record was generated, in whole or in part, using a voice recognition dictation system. Departure Departure Impression: Primary Impression: Acute postoperative pain of abdomen Additional Impression: Nausea without vomiting Disposition: 01 HOME, SELF-CARE Condition: GOOD Referrals: IRWIN BOWER MD (PCP) ZHEN TRUONG MD Patient Instructions: Abdominal Pain, Nausea, Adult, [id number] Additional Instructions: Please take nausea medication as directed and continue home pain medication. Contact Dr. Truong's office tomorrow and provide update on overall symptoms improvement. Return to the ED if new or worsening symptoms. Scripts Ondansetron Hcl (ZOFRAN) 4 Mg Tablet 1 TAB PO Q6HRS, #6 TAB 0 Refills Prov: ZION CÁRDENAS DO 02/01/19 Problem Qualifiers ZION CÁRDENAS DO Feb 01, 2019 02:52
[2019-02-01 02:56] LABS: ALBUMIN 3.4 g/dL (3.4-5.0); ALBUMIN/GLOBULIN RATIO 0.8 (1.0-1.7); TOTAL BILIRUBIN 0.2 mg/dL (0.2-1.0); TOTAL PROTEIN 7.6 g/dL (6.4-8.2)
[2019-02-01] MEDS ORDERED: FAMOTIDINE 20 MG/2 ML VIAL IVP ONE (03:00)
[2019-02-01] MEDS ORDERED: ONDANSETRON PF 4 MG/2 ML VIAL. IV ONE (03:00)
[2019-02-01 03:26] VITALS: BP 123/67
[2019-02-01] MEDS ORDERED: ONDA4TAB7 PO (03:35)
--- NOTE | 2019-02-01 07:31 | EKG ---
[facility] [address] [place] [address] Test Date: 2019-02-01 Test Time: 02:46:00 Pat Name: KATALINA MONGE Department: Room: Gender: F [employer]: : 1980 Requested By: ZION CÁRDENAS Order Number: [id number] Reading MD: Herman Monreal Measurements Intervals [place] Rate: 84 P: -22 TX: 136 QRS: 22 QRSD: 92 T: 3 QT: 330 QTc: 393 Interpretive Statements SINUS RHYTHM Electronically Signed On 02-08-2019 12:57:56 CDT by Herman Monreal
== END 2019-02-01 03:39 | disposition home or self-care (01) ==
LOC: ER 23:56
DX: G89.18 Other acute postprocedural pain (principal); R10.13 Epigastric pain; R11.0 Nausea; E11.9 Type 2 diabetes mellitus without complications; I10 Essential (primary) hypertension; F41.9 Anxiety disorder, unspecified; F32.9 Major depressive disorder, single episode, unspecified; Z90.49 Acquired absence of other specified parts of digestive tract; Z90.710 Acquired absence of both cervix and uterus; Z98.51 Tubal ligation status; Z88.8 Allergy status to other drugs, medicaments and biological substances
CPT/HCPCS: 36415; 80053; 83690; 84484; 85025; 93005; 96374; 96375; 99285; J2405; J3490

== ENCOUNTER → 2021-02-28 | Outpatient (CLI) | payer BC, OTHER ==
[~2021-02-28] MED LIST changes: -GLIM2TAB2 PO; +GLIM2TAB7 PO; +ONDA4TAB7 PO; -PANT40TA3 PO; +PANT40TA77 PO
== END ==
LOC: RT 10:01
PROVIDERS: ATTEND Internal Medicine Pulmonary Disease
DX: G47.33 Obstructive sleep apnea (adult) (pediatric) (principal); R09.02 Hypoxemia
CPT/HCPCS: G0399

== ENCOUNTER → 2021-03-20 | Outpatient (CLI) | payer BC, OTHER ==
--- NOTE | 2021-03-21 11:05 | CARD ---
MR#: [id number] Date of Study: 03/20/2021 Ordering Physician: SUJATA BLACKWOOD, Referring Physician: SUJATA BLACKWOOD, Tech: Ariella Castro [facility] APPROVED REPORT EXAM: Two-dimensional and M-mode echocardiogram with Doppler and color Doppler. Other Information Quality : AverageHR: 82bpm Rhythm : NSR INDICATION Palpitations RISK FACTORS Hypertension Obesity Diabetes 2D DIMENSIONS RVDd2.9 (2.9-3.5cm)Left Atrium(2D)4.3 (1.6-4.0cm) IVSd1.2 (0.7-1.1cm)Aortic Root(2D)3.0 (2.0-3.7cm) LVDd4.9 (3.9-5.9cm)LVOT Diameter2.8 (1.8-2.4cm) PWd1.2 (0.7-1.1cm)LVDs3.5 (2.5-4.0cm) FS (%) 28.3 %SV60.9 ml LVEF(%)54.5 (>50%) Aortic Valve AoV Peak Ilan.124.8cm/sAoV VTI27.6cm AO Peak GR.6.2mmHgLVOT Peak Ilan.90.0cm/s AO Mean GR.3mmHgAVA (VMAX)4.44cm2 Mitral Valve MV E Lfqtycqz50.8cm/sMV DECEL [id number] MV A Hsntzuqr33.7cm/sE/A Ratio1.2 Pulmonary Valve PV Peak Fdouqlyi51.0cm/s Tricuspid Valve TR P. Zurheqhg274gy/sTR Peak Gr.26mmHg LEFT VENTRICLE The left ventricle is normal size. There is borderline concentric left ventricular hypertrophy. The l eft ventricular systolic function is normal and the ejection fraction is within normal range. Estima estelita ejection fraction 55-60%. There is normal LV segmental wall motion. The left ventricular diastoli c function and filling is normal for age. RIGHT VENTRICLE The right ventricle is normal size. There is normal right ventricular wall thickness. The right ventr icular systolic function is normal. ATRIA The left atrium size is normal. The right atrium size is normal. The interatrial septum is intact wit h no evidence for an atrial septal defect or patent foramen ovale as noted on 2-D or Doppler imaging. AORTIC VALVE The aortic valve is normal in structure and function. Doppler and Color Flow revealed no significant aortic regurgitation. There is no significant aortic valvular stenosis. MITRAL VALVE The mitral valve is normal in structure and function. There is no evidence of mitral valve prolapse. There is no mitral valve stenosis. Doppler and Color-flow revealed trace mitral regurgitation. TRICUSPID VALVE The tricuspid valve is normal in structure and function. Doppler and Color Flow revealed no tricuspid valve regurgitation noted. There is no tricuspid valve stenosis. PULMONIC VALVE The pulmonary valve is normal in structure and function. Doppler and Color Flow revealed no pulmonic valvular regurgitation. GREAT VESSELS The aortic root is normal in size. The ascending aorta is normal in size. The IVC is normal in size a nd collapses >50% with inspiration. PERICARDIAL EFFUSION There is no evidence of significant pericardial effusion. Critical Notification Critical Value: No <Conclusion> The left ventricle is normal size. The left ventricular systolic function is normal and the ejection fraction is within normal range. Estimated ejection fraction 55-60%. There is borderline concentric left ventricular hypertrophy. Doppler and Color Flow revealed no significant aortic regurgitation. There is no significant aortic valvular stenosis. Doppler and Color-flow revealed trace mitral regurgitation. Doppler and Color Flow revealed no tricuspid valve regurgitation noted. Signed by : Romulo Willson MD Electronically Approved : 03/21/2021 11:04:31
== END ==
LOC: ECHO 07:47
PROVIDERS: ATTEND Internal Medicine Cardiovascular Disease
DX: I11.9 Hypertensive heart disease without heart failure (principal)
CPT/HCPCS: 93306

== ENCOUNTER 2021-07-20 22:21 | Emergency (ER) | payer BC, OTHER ==
[~2021-07-20] VITALS: Ht 162.6 cm; Wt 118.2 kg
[2021-07-20 22:26] VITALS: BP 171/109
[2021-07-20] MEDS ORDERED: LIDOCAINE 2%/EPI 1:100,000 20 ML VIAL. INJ ONE (23:15)
[2021-07-20] MEDS ORDERED: DEXAMETHASONE 4 MG TABLET PO ONE (23:15)
[2021-07-20] MEDS ORDERED: BUPIVACAINE MPF 0.5% 30 ML VIAL. INJ ONE (23:15)
--- NOTE | 2021-07-20 23:37 | PHYS DOC ---
Past Medical History Past Medical History: Anxiety, Depression, Diabetes-Type II, GERD, Hypert ension, IBS, Other Additional Past Medical Histor: Barretts Esophagus Past Surgical History: Cholecystectomy, Hysterectomy, Tonsillectomy, Tubal ligation, Other Additional Past Surgical Histo: Adenoids, L)tube and ovary mass removed Smoking Status: Never Smoker Alcohol Use: Occasionally Drug Use: None General Adult EDM: Chief Complaint: DENTAL PROBLEM HPI: HPI: Patient is a 41-year-old female presents with report of right lower molar "stabbing pain" which she reports is 10 out of 10. Patient reports pain started yesterday after eating a candy bar. Patient reports taking 800 mg of ibuprofen and a Percocet 5/325 at 2100 without significant relief. Patient denies any fever or chills. Patient reports she thinks she had a dental fracture in the past. Patient reports she plans to follow with a dentist in the morning at a walk-in clinic. Denies as patient has history of hysterectomy. Patient also reports taking a "leftover "amoxicillin at 2000. Review of Systems: Review of Systems: Constitutional: Denies fever or chills Eyes: Denies redness or eye pain HENT: Denies nasal congestion; reports dentalgia Neurologic: Denies headache, focal weakness or sensory changes Complete systems were reviewed and found to be within normal limits, except as documented in this note. Heart Score: C/O Chest Pain: N/A Current Medications: Current Medications Medications (Trade) Dose Ordered Sig/Eloy Start Time Stop Time Status Last Admin Dose Admin Bupivacaine HCl (Sensorcaine Mpf 0.5%) 30 ml 1X ONCE 07/20/21 23:15 07/20/21 23:17 DC Dexamethasone (Decadron) 10 mg 1X ONCE 07/20/21 23:15 07/20/21 23:17 DC Lidocaine/ Epinephrine (LIDOCAINE 2%-EPI 1:100,000 multi-dose) 20 ml 1X ONCE 07/20/21 23:15 07/20/21 23:17 DC Allergies: Allergies: Allergies Coded Allergies Type Severity Reaction Last Updated Verified paroxetine Allergy Intermediate 01/14/19 Yes sertraline Allergy Intermediate 01/14/19 No Physical Exam: PE: Constitutional: Well developed, well nourished, no acute distress, non-toxic appearance HENT: Normocephalic, atraumatic, right 2nd mandibular molar pain on palpation with old filling noted, no fluctuant mass noted Eyes: Conjunctiva normal, no discharge Neck: Normal range of motion, supple Lungs & Thorax: No respiratory distress, equal chest rise and fall Skin: Warm, dry, no erythema, no rash Extremities: No tenderness, ROM intact, no edema Neurologic: Alert and oriented X 3, no focal deficits noted Psychologic: Affect normal, judgment normal Current Patient Data: Vital Signs: Vital Signs Date Time Temp Pulse Resp B/P (MAP) Pulse Ox O2 Delivery O2 Flow Rate FiO2 07/20/21 22:26 98.3 89 18 171/109 (129) 100 Room Air 98.3 EKG: EKG: [] Radiology/Procedures: Radiology/Procedures: [] Course & Med Decision Making: Course & Med Decision Making Patient presents with dentalgia. Pain addressed with dental block and oral steroid. Patient previously took a "left over "amoxicillin at 2000 this evening. Patient with plan to follow-up with dentist at walk-in clinic in the morning. Prescription for Augmentin therefore provided. Patient advised to continue [id number] ibuprofen and or Tylenol for pain or discomfort. Patient stable for discharge with outpatient follow-up with PCP/dentist. Discussed findings and plan with patient, who acknowledges understanding and agreement. Sage Disclaimer: Sage Disclaimer: This electronic medical record was generated, in whole or in part, using a voice recognition dictation system. Additional Procedures Progress Dental block Verbal consent obtained. Time out performed. Hand hygiene utilized. Anesthesia obtained via right inferior alveoloar block via a 25-gauge hypodermic needle with (8) mL's of 50/50 mix of lidocaine 2% with epinephrine and bupivicaine 0.5% without. Patient tolerated procedure well and without difficulty with interval resolution of symptoms. Departure Departure Impression: Primary Impression: Dentalgia Disposition: HOME / SELF CARE / HOMELESS Condition: STABLE Referrals: IRWIN BOWER MD (PCP) Patient Instructions: Toothache-Brief Additional Instructions: Use over the counter Tylenol and/or Ibuprofen for pain or discomfort. Scripts Chlorhexidine Gluconate (PERIDEX) 15 Ml Mouthwash 15 ML PO BID, #473 ML 0 Refills Prov: ERIC CHRISTINE DO 07/20/21 Amoxicillin/Potassium Clav (AUGMENTIN 875-125 TABLET) 1 Each Tablet 1 TAB PO BID for 7 Days, #14 TAB 0 Refills Prov: ERIC CHRISTINE DO 07/20/21 ERIC CHRISTINE DO Jul 20, 2021 23:37
[2021-07-20] MEDS ORDERED: CHLO15MO2 PO (23:46)
[2021-07-20] MEDS ORDERED: AMOX1TAB61 PO (23:46)
== END 2021-07-21 00:19 | disposition home or self-care (01) ==
LOC: ER 22:21
DX: K08.89 Other specified disorders of teeth and supporting structures (principal); F41.9 Anxiety disorder, unspecified; F32.9 Major depressive disorder, single episode, unspecified; E11.9 Type 2 diabetes mellitus without complications; K21.9 Gastro-esophageal reflux disease without esophagitis; I10 Essential (primary) hypertension; K58.9 Irritable bowel syndrome, unspecified; Z88.8 Allergy status to other drugs, medicaments and biological substances
CPT/HCPCS: 64400; 99284; J3490